=== PATIENT | male | born 1935 | race Caucasian/White ===

== ENCOUNTER 2023-02-09 14:48 | Inpatient (IN) | payer BC ==
[~2023-02-09] VITALS: Ht 175.3 cm; Wt 63.5 kg
[2023-02-09 15:47] LABS: HEMOGLOBIN 13.8 g/dL (12.5-16.3)
[2023-02-09 15:55] LABS: BASOPHILS # (AUTO) 0.1 K/UL (0.0-0.2); BASOPHILS % (AUTO) 0.9 % (0.0-2.0); DIFFERENTIAL COMMENT 0; EOSINOPHILS # (AUTO) 0.1 K/uL (0.0-0.7); EOSINOPHILS % (AUTO) 1.1 % (0.0-7.0); HEMATOCRIT 41.2 % (36.7-47.1); LYMPHOCYTES # (AUTO) 1.6 K/uL (0.8-4.8); MEAN CORPUSCULAR HEMOGLOBIN 30.6 uug (23.8-33.4); MEAN CORPUSCULAR HGB CONC 34 g/dL (32.5-36.3); MEAN CORPUSCULAR VOLUME 91.5 fL (73.0-96.2); MONOCYTES # (AUTO) 0.9 K/uL (0.1-1.30); MONOCYTES % (AUTO) 13.7 % (0.0-11.0); NEUTROPHILS % (AUTO) 60.3 % (38.5-71.5); PLATELET COUNT (AUTO) 190 K/uL (152-348); RED CELL DISTRIBUTION WIDTH 15.3 % (12.1-16.2); WHITE BLOOD COUNT (AUTO) 6.6 K/uL (3.6-10.2)
[2023-02-09 16:05] LABS: ETHANOL < 3 MG/DL (0-10)
[2023-02-09 16:15] LABS: AMMONIA < 10 umol/L (11-32)
[2023-02-09 16:20] LABS: LACTIC ACID 2.4 mmol/L (0.4-2.0)
[2023-02-09 16:30] LABS: CALCIUM 9.5 mg/dL (8.5-10.1); CARBON DIOXIDE 24 mmol/L (21-32); CHLORIDE 98 mmol/L (98-107); CREATININE 1.4 mg/dL (0.6-1.3); GLUCOSE 95 mg/dL (74-106); POTASSIUM 3.3 mmol/L (3.5-5.1); SODIUM SERUM 140 mmol/L (136-145); UREA NITROGEN, BLOOD 21 mg/dL (7-18)
[2023-02-09 16:45] LABS: *BLOOD, URINE 1+ (NEGATIVE); *CLARITY,URINE CLEAR (CLEAR); *COLOR,URINE YELLOW (YELLOW); *KETONES,URINE 2+ (NEGATIVE); *PROTEIN,URINE NEGATIVE (NEGATIVE); LEUKOCYTE ESTERASE ,URINE NEGATIVE (NEGATIVE); NITRITE, URINE NEGATIVE (NEGATIVE); UGLUCOSE NEGATIVE (NEGATIVE)
[2023-02-09 16:48] LABS: *BILIRUBIN,URIN 2+ (NEGATIVE)
[2023-02-09 17:04] LABS: ALANINE AMINOTRANSFERASE 31 U/L (16-63); ALBUMIN 3.7 g/dL (3.4-5.0); ALKALINE PHOSPHATASE 53 U/L (50-136); ASPARTATE AMINOTRANSFERASE 30 U/L (15-37); BILIRUBIN,DIRECT 0.3 mg/dL (0.0-0.2); BILIRUBIN,TOTAL 0.6 mg/dL (0.2-1.0); TOTAL PROTEIN, SERUM 7.5 g/dL (6.4-8.2)
[2023-02-09 17:29] LABS: *AMPHETAMINE, URINE NEGATIVE (NEGATIVE); *BARBITURATE, URINE NEGATIVE (NEGATIVE); *BENZODIAZEPINE, URINE NEGATIVE (NEGATIVE); *CANNABINOID, URINE NEGATIVE (NEGATIVE); *COCCAINE, URINE NEGATIVE (NEGATIVE); *OPIATE, URINE NEGATIVE (NEGATIVE); *PHENCYCLIDINE SCREEN,URINE NEGATIVE (NEGATIVE); FENTANYL, URINE NEGATIVE (NEGATIVE)
[2023-02-09 17:46] LABS: ACETAMINOPHEN < 10.0 ug/mL (10-30)
[2023-02-09 18:26] LABS: BACTERIA,URINE FEW /HPF (NONE SEEN); SQUAMOUS EPITHELIAL CELL,UR FEW /HPF (NONE SEEN)
[2023-02-09 18:47] LABS: THYROID STIMULATING HORMONE 1.884 mIU/mL (0.358-3.740)
[2023-02-09] MEDS ORDERED: MAGNESIUM HYDROXIDE 30 ML LIQUID UDC PO PRN (19:30)
[2023-02-09] MEDS ORDERED: ACETAMINOPHEN 325 MG TABLET PO PRN (19:30)
[2023-02-09] MEDS ORDERED: ONDANSETRON 4 MG/2 ML VIAL IV PRN (19:30)
[2023-02-09] MEDS: ENOXAPARIN SODIUM 40 MG/0.4 ML DISP.SYRIN SQ SCH (21:33)
[2023-02-09] MEDS: IV D5 1/2 NS 1000 ML 1,000 ML IV PRN (21:42)
[2023-02-09] MEDS ORDERED: CEFTRIAXONE 1 G VIAL ONE (22:23)
[2023-02-09] MEDS: CEFTRIAXONE 1 G in IV DEXTROSE 5% 50 ML IV SCH (22:51)
[2023-02-10 00:55] VITALS: BP 118/70; TEMP 98.3; O2SAT 96
[2023-02-10 05:08] VITALS: BP 110/47; TEMP 97.5; O2SAT 96
[2023-02-10 07:20] LABS: BASOPHILS # (AUTO) 0.1 K/UL (0.0-0.2); BASOPHILS % (AUTO) 1.3 % (0.0-2.0); EOSINOPHILS # (AUTO) 0.1 K/uL (0.0-0.7); EOSINOPHILS % (AUTO) 1.2 % (0.0-7.0); HEMATOCRIT 36.8 % (36.7-47.1); HEMOGLOBIN 12.2 g/dL (12.5-16.3); LYMPHOCYTES # (AUTO) 1.4 K/uL (0.8-4.8); LYMPHOCYTES % (AUTO) 21.1 % (20.5-51.5); MEAN CORPUSCULAR HEMOGLOBIN 29.9 uug (23.8-33.4); MEAN CORPUSCULAR HGB CONC 33 g/dL (32.5-36.3); MEAN CORPUSCULAR VOLUME 90.3 fL (73.0-96.2); MONOCYTES # (AUTO) 1.1 K/uL (0.1-1.30); MONOCYTES % (AUTO) 17.5 % (0.0-11.0); NEUTROPHILS # (AUTO) 3.8 K/uL (1.8-8.9); NEUTROPHILS % (AUTO) 58.9 % (38.5-71.5); PLATELET COUNT (AUTO) 164 K/uL (152-348); RED BLOOD CELL COUNT(AUTO) 4.08 MIL/uL (4.06-5.63); RED CELL DISTRIBUTION WIDTH 14.8 % (12.1-16.2); WHITE BLOOD COUNT (AUTO) 6.5 K/uL (3.6-10.2)
[2023-02-10 07:37] LABS: DIFFERENTIAL COMMENT 1
[2023-02-10 07:39] LABS: ALANINE AMINOTRANSFERASE 25 U/L (16-63); ALBUMIN 2.8 g/dL (3.4-5.0); ALKALINE PHOSPHATASE 36 U/L (50-136); ASPARTATE AMINOTRANSFERASE 24 U/L (15-37); BILIRUBIN,TOTAL 0.6 mg/dL (0.2-1.0); CARBON DIOXIDE 27 mmol/L (21-32); CHLORIDE 100 mmol/L (98-107); CREATININE 1.3 mg/dL (0.6-1.3); GLUCOSE 133 mg/dL (74-106); MAGNESIUM 1.7 mg/dL (1.8-2.4); PHOSPHOROUS 2.7 mg/dL (2.5-4.9); POTASSIUM 3.4 mmol/L (3.5-5.1); SODIUM SERUM 138 mmol/L (136-145); TOTAL PROTEIN, SERUM 5.8 g/dL (6.4-8.2); UREA NITROGEN, BLOOD 18 mg/dL (7-18)
[2023-02-10 07:53] LABS: CALCIUM 8.1 mg/dL (8.5-10.1)
[2023-02-10 07:56] LABS: THYROID STIMULATING HORMONE 1.716 mIU/mL (0.358-3.740)
[2023-02-10 08:00] VITALS: BP 134/71; TEMP 97.5; O2SAT 97
[2023-02-10] MEDS ORDERED: POTASSIUM CHLORIDE 20 MEQ TAB.PRT.SR PO ONE ×2 (08:45→17:00)
[2023-02-10] MEDS ORDERED: MAGNESIUM OXIDE 400 MG TABLET PO ONE (09:15)
[2023-02-10 11:30] VITALS: BP 125/74; TEMP 98; O2SAT 94
[2023-02-10 15:14] LABS: EOSINOPHILS % (MANUAL) 2 % (0-8); LYMPHOCYTES % (MANUAL) 24 % (20-40); MONOCYTES % (MANUAL) 15 % (2-10); NEUTROPHILS % (MANUAL) 59 % (42-75); PLATELET ESTIMATE ADEQUATE
[2023-02-10 16:38] VITALS: BP 133/84; TEMP 98.3; O2SAT 96
[2023-02-10] MEDS: IV D5 1/2 NS 1000 ML 1,000 ML IV PRN (17:03)
[2023-02-10] MEDS: ENSURE ENLIVE (VAN) 240 ML LIQUID PO SCH (17:03)
[2023-02-10] MEDS: CLOTRIMAZOLE 1% CREAM 30 GM TUBE TOP SCH (17:07)
[2023-02-10 20:00] VITALS: BP 147/90; TEMP 98.6; O2SAT 93
[2023-02-10] MEDS: ENOXAPARIN SODIUM 40 MG/0.4 ML DISP.SYRIN SQ SCH (21:03)
[2023-02-10] MEDS: CEFTRIAXONE 1 G in IV DEXTROSE 5% 50 ML IV SCH (21:19)
[2023-02-11 04:30] VITALS: BP 143/74; TEMP 98.6; O2SAT 95
[2023-02-11 08:31] LABS: BASOPHILS % (AUTO) 0.6 % (0.0-2.0); EOSINOPHILS # (AUTO) 0.1 K/uL (0.0-0.7); EOSINOPHILS % (AUTO) 1.8 % (0.0-7.0); LYMPHOCYTES # (AUTO) 1.6 K/uL (0.8-4.8); LYMPHOCYTES % (AUTO) 25.2 % (20.5-51.5); MEAN CORPUSCULAR HEMOGLOBIN 30.4 uug (23.8-33.4); MEAN CORPUSCULAR HGB CONC 33 g/dL (32.5-36.3); MEAN CORPUSCULAR VOLUME 91.1 fL (73.0-96.2); MONOCYTES # (AUTO) 1.1 K/uL (0.1-1.30); MONOCYTES % (AUTO) 17.3 % (0.0-11.0); NEUTROPHILS # (AUTO) 3.5 K/uL (1.8-8.9); NEUTROPHILS % (AUTO) 55.1 % (38.5-71.5); PLATELET COUNT (AUTO) 177 K/uL (152-348); RED BLOOD CELL COUNT(AUTO) 3.95 MIL/uL (4.06-5.63); RED CELL DISTRIBUTION WIDTH 14.9 % (12.1-16.2); WHITE BLOOD COUNT (AUTO) 6.4 K/uL (3.6-10.2)
[2023-02-11 08:39] LABS: DIFFERENTIAL COMMENT 1
[2023-02-11 08:41] LABS: LYMPHOCYTES % (MANUAL) 0 % (20-40); NEUTROPHILS % (MANUAL) 0 % (42-75)
[2023-02-11 08:45] LABS: CALCIUM 8.8 mg/dL (8.5-10.1); CARBON DIOXIDE 25 mmol/L (21-32); CHLORIDE 101 mmol/L (98-107); CREATININE 1.1 mg/dL (0.6-1.3); GLUCOSE 118 mg/dL (74-106); MAGNESIUM 1.8 mg/dL (1.8-2.4); SODIUM SERUM 137 mmol/L (136-145); UREA NITROGEN, BLOOD 14 mg/dL (7-18)
[2023-02-11 08:48] LABS: POTASSIUM 3.7 mmol/L (3.5-5.1)
[2023-02-11] MEDS: REMEDY ESSENTIAL ZINC PASTE 113 GM TP PRN (09:01)
[2023-02-11] MEDS: CLOTRIMAZOLE 1% CREAM 30 GM TUBE TOP SCH ×2 (09:02→17:34)
[2023-02-11] MEDS: ENSURE ENLIVE (VAN) 240 ML LIQUID PO SCH ×2 (09:03→17:33)
[2023-02-11] MEDS: IV D5 1/2 NS 1000 ML 1,000 ML IV PRN (10:49)
[2023-02-11 11:14] VITALS: BP 111/72; TEMP 98.3; O2SAT 95
[2023-02-11 15:07] VITALS: BP 102/61; TEMP 98.4; O2SAT 94
[2023-02-11] MEDS: ENOXAPARIN SODIUM 40 MG/0.4 ML DISP.SYRIN SQ SCH (20:10)
[2023-02-11] MEDS: CEFTRIAXONE 1 G in IV DEXTROSE 5% 50 ML IV SCH (20:22)
[2023-02-11 20:52] VITALS: BP 132/76; TEMP 98.8; O2SAT 98
[2023-02-11 23:24] VITALS: BP 124/69; TEMP 98.6; O2SAT 96
[2023-02-12] MEDS: IV D5 1/2 NS 1000 ML 1,000 ML IV PRN (03:53)
[2023-02-12 05:18] VITALS: BP 150/84; TEMP 98.4; O2SAT 98
[2023-02-12] MEDS: ENSURE ENLIVE (VAN) 240 ML LIQUID PO SCH ×2 (09:11→17:33)
[2023-02-12] MEDS: CLOTRIMAZOLE 1% CREAM 30 GM TUBE TOP SCH ×2 (09:12→17:34)
[2023-02-12 10:22] LABS: LACTIC ACID 3.3 mmol/L (0.4-2.0)
[2023-02-12] MEDS ORDERED: MINERAL OIL/PETROLATUM,WHITE 57 GM TUBE TOP PRN (11:15)
[2023-02-12 11:32] VITALS: BP 124/82; TEMP 97.9; O2SAT 95
[2023-02-12 12:59] LABS: BILIRUBIN,DIRECT 0.1 mg/dL (0.0-0.2); BILIRUBIN,TOTAL 0.3 mg/dL (0.2-1.0)
[2023-02-12 16:00] VITALS: BP 136/77; TEMP 97.6; O2SAT 97
[2023-02-12 19:50] VITALS: BP 109/61; TEMP 98; O2SAT 95
[2023-02-12] MEDS: MINERAL OIL/PETROLATUM,WHITE 57 GM TUBE TOP SCH (21:00)
[2023-02-12] MEDS: METRONIDAZOLE 500 MG/NS 100ML 500 MG in PREMIXED 1 EACH IV SCH (22:38)
[2023-02-12] MEDS: CEFTRIAXONE 1 G in IV DEXTROSE 5% 50 ML IV SCH (22:38)
[2023-02-12] MEDS: ENOXAPARIN SODIUM 40 MG/0.4 ML DISP.SYRIN SQ SCH (22:39)
[2023-02-13 00:47] VITALS: BP 128/80; TEMP 98.4; O2SAT 96
[2023-02-13] MEDS: IV D5 1/2 NS 1000 ML 1,000 ML IV PRN ×2 (02:10→17:41)
[2023-02-13] MEDS: METRONIDAZOLE 500 MG/NS 100ML 500 MG in PREMIXED 1 EACH IV SCH ×3 (05:29→21:40)
[2023-02-13 06:42] VITALS: BP 150/90; TEMP 98.6; O2SAT 95
[2023-02-13] MEDS: ENSURE ENLIVE (VAN) 240 ML LIQUID PO SCH ×2 (09:19→16:33)
[2023-02-13] MEDS: CLOTRIMAZOLE 1% CREAM 30 GM TUBE TOP SCH ×2 (09:21→16:33)
[2023-02-13] MEDS: MINERAL OIL/PETROLATUM,WHITE 57 GM TUBE TOP SCH ×2 (09:22→20:05)
[2023-02-13] MEDS: REMEDY ESSENTIAL ZINC PASTE 113 GM TP PRN (09:23)
[2023-02-13 09:48] LABS: HIV-1 p24 ANTIGEN NON REACTIVE (NONREACTIVE); HIV-1/2 ANTIBODY NON REACTIVE (NONREACTIVE)
[2023-02-13 11:19] VITALS: BP 139/73; TEMP 98.8; O2SAT 93
[2023-02-13 16:00] VITALS: BP 147/81; TEMP 98.6
[2023-02-13 20:00] VITALS: BP 145/73; TEMP 98.5; O2SAT 90
[2023-02-13] MEDS: CEFTRIAXONE 1 G in IV DEXTROSE 5% 50 ML IV SCH (20:02)
[2023-02-13] MEDS: ENOXAPARIN SODIUM 40 MG/0.4 ML DISP.SYRIN SQ SCH (20:07)
[2023-02-13 22:33] VITALS: O2SAT 99
[2023-02-14] VITALS: BP 161/93; TEMP 98.5; O2SAT 93
[2023-02-14 04:00] VITALS: BP 142/80; TEMP 98.1; O2SAT 92
[2023-02-14] MEDS: METRONIDAZOLE 500 MG/NS 100ML 500 MG in PREMIXED 1 EACH IV SCH ×3 (06:10→22:02)
[2023-02-14] MEDS: ENSURE ENLIVE (VAN) 240 ML LIQUID PO SCH ×2 (08:00→17:00)
[2023-02-14] MEDS: REMEDY ESSENTIAL ZINC PASTE 113 GM TP PRN (08:40)
[2023-02-14] MEDS: CLOTRIMAZOLE 1% CREAM 30 GM TUBE TOP SCH ×3 (08:40→21:26)
[2023-02-14] MEDS: MINERAL OIL/PETROLATUM,WHITE 57 GM TUBE TOP SCH ×2 (08:40→21:28)
[2023-02-14 11:46] VITALS: BP 136/81; TEMP 98; O2SAT 98
[2023-02-14] MEDS: IV D5 1/2 NS 1000 ML 1,000 ML IV PRN (12:14)
[2023-02-14] MEDS: MAGNESIUM HYDROXIDE 30 ML LIQUID UDC PO SCH ×2 (13:21→21:25)
[2023-02-14 16:23] VITALS: BP 128/77; TEMP 98; O2SAT 97
[2023-02-14 20:00] VITALS: BP 103/63; TEMP 99.1; O2SAT 93
[2023-02-14] MEDS ORDERED: CEFTRIAXONE 2 G in IV DEXTROSE 5% 50 ML IV SCH (21:00)
[2023-02-14] MEDS: CEFTRIAXONE 2 G in IV DEXTROSE 5% 100 ML IV SCH (21:25)
[2023-02-14] MEDS: ENOXAPARIN SODIUM 40 MG/0.4 ML DISP.SYRIN SQ SCH (21:27)
[2023-02-15] VITALS: BP 95/55; TEMP 99.7; O2SAT 93
[2023-02-15 04:00] VITALS: BP 122/69; TEMP 98.6; O2SAT 93
[2023-02-15] MEDS: METRONIDAZOLE 500 MG/NS 100ML 500 MG in PREMIXED 1 EACH IV SCH ×3 (06:07→22:31)
[2023-02-15 07:26] LABS: BASOPHILS # (AUTO) 0.1 K/UL (0.0-0.2); BASOPHILS % (AUTO) 0.9 % (0.0-2.0); EOSINOPHILS # (AUTO) 0.4 K/uL (0.0-0.7); EOSINOPHILS % (AUTO) 6.5 % (0.0-7.0); HEMATOCRIT 33.1 % (36.7-47.1); HEMOGLOBIN 11.1 g/dL (12.5-16.3); LYMPHOCYTES # (AUTO) 1.7 K/uL (0.8-4.8); MEAN CORPUSCULAR HEMOGLOBIN 30.4 uug (23.8-33.4); MEAN CORPUSCULAR HGB CONC 34 g/dL (32.5-36.3); MEAN CORPUSCULAR VOLUME 90.7 fL (73.0-96.2); MONOCYTES % (AUTO) 16.2 % (0.0-11.0); NEUTROPHILS # (AUTO) 3.1 K/uL (1.8-8.9); NEUTROPHILS % (AUTO) 49.4 % (38.5-71.5); PLATELET COUNT (AUTO) 199 K/uL (152-348); RED BLOOD CELL COUNT(AUTO) 3.66 MIL/uL (4.06-5.63); RED CELL DISTRIBUTION WIDTH 15.1 % (12.1-16.2); WHITE BLOOD COUNT (AUTO) 6.2 K/uL (3.6-10.2)
[2023-02-15 07:31] LABS: DIFFERENTIAL COMMENT 1
[2023-02-15 08:30] LABS: ALANINE AMINOTRANSFERASE 43 U/L (16-63); ALBUMIN 2.6 g/dL (3.4-5.0); ALKALINE PHOSPHATASE 39 U/L (50-136); ASPARTATE AMINOTRANSFERASE 50 U/L (15-37); BILIRUBIN,TOTAL 0.3 mg/dL (0.2-1.0); CALCIUM 8.7 mg/dL (8.5-10.1); CARBON DIOXIDE 25 mmol/L (21-32); CHLORIDE 104 mmol/L (98-107); CHOLESTEROL 120 mg/dL (<200); CREATININE 1.1 mg/dL (0.6-1.3); GLUCOSE 106 mg/dL (74-106); HDL CHOLESTEROL 42 mg/dL (40-60); MAGNESIUM 2.2 mg/dL (1.8-2.4); PHOSPHOROUS 2.6 mg/dL (2.5-4.9); POTASSIUM 3.8 mmol/L (3.5-5.1); SODIUM SERUM 139 mmol/L (136-145); TOTAL PROTEIN, SERUM 5.9 g/dL (6.4-8.2); TRIGLYCERIDES 44 MG/DL (30-150); UREA NITROGEN, BLOOD 13 mg/dL (7-18)
[2023-02-15] MEDS: CLOTRIMAZOLE 1% CREAM 30 GM TUBE TOP SCH ×2 (08:32→16:16)
[2023-02-15] MEDS: MINERAL OIL/PETROLATUM,WHITE 57 GM TUBE TOP SCH ×2 (08:38→20:30)
[2023-02-15] MEDS: ENSURE ENLIVE (VAN) 240 ML LIQUID PO SCH ×2 (08:40→16:16)
[2023-02-15 11:50] VITALS: BP 149/81; TEMP 98; O2SAT 94
[2023-02-15] MEDS: IV D5 1/2 NS 1000 ML 1,000 ML IV PRN (13:35)
[2023-02-15 15:50] VITALS: BP 138/70; TEMP 98; O2SAT 95
[2023-02-15 20:00] VITALS: BP 146/73; TEMP 98.7; O2SAT 93
[2023-02-15] MEDS ORDERED: CLOBETASOL PROPIONATE 0.05% CREAM 15 GM TUBE TOP SCH (21:00)
[2023-02-15] MEDS: CEFTRIAXONE 2 G in IV DEXTROSE 5% 100 ML IV SCH (21:17)
[2023-02-16 04:34] VITALS: BP 118/68; TEMP 97.9; O2SAT 94
[2023-02-16] MEDS: METRONIDAZOLE 500 MG/NS 100ML 500 MG in PREMIXED 1 EACH IV SCH ×2 (05:05→14:20)
[2023-02-16] MEDS: IV D5 1/2 NS 1000 ML 1,000 ML IV PRN (05:21)
[2023-02-16 08:00] VITALS: BP 161/97; TEMP 97.1; O2SAT 96
[2023-02-16] MEDS ORDERED: CLOBETASOL PROPIONATE 0.05% CREAM 15 GM TUBE TOP SCH (09:00)
[2023-02-16] MEDS: MINERAL OIL/PETROLATUM,WHITE 57 GM TUBE TOP SCH (09:06)
[2023-02-16] MEDS: CLOTRIMAZOLE 1% CREAM 30 GM TUBE TOP SCH ×2 (09:07→17:57)
[2023-02-16] MEDS: ENSURE ENLIVE (VAN) 240 ML LIQUID PO SCH ×2 (09:09→17:56)
[2023-02-16 11:42] VITALS: BP 175/83; TEMP 96.2; O2SAT 97
[2023-02-16 11:46] VITALS: BP 114/54; TEMP 97.4; O2SAT 96
[2023-02-16 16:07] VITALS: BP 139/75; TEMP 98.4; O2SAT 93
[2023-02-16] MEDS ORDERED: Lactose-Free Food PO (18:08)
[2023-02-16] MEDS ORDERED: MAGN400O6 PO (18:08)
[2023-02-16] MEDS ORDERED: FURO-152 PO (18:08)
[2023-02-16] MEDS ORDERED: MINE454C11 TOP (18:08)
[2023-02-16] MEDS ORDERED: ACET325T53 PO (18:08)
[2023-02-16] MEDS ORDERED: CLOB15CR10 TOP (18:08)
== END 2023-02-16 23:19 | DRG 871 ==
LOC: ER 14:48 → TELE3 19:42 → MEDSURG3 02-10 10:25 → TELE3 02-11 12:39 → MEDSURG3 02-15 18:24 → MED 02-15 21:20
PROVIDERS: ADMIT Internal Medicine; ATTEND Internal Medicine
PROC: 05HC33Z Insertion of Infusion Device into Left Basilic Vein, Percutaneous Approach (ICD-10-PCS; principal; 2023-02-11)
DX: A41.9 Sepsis, unspecified organism (principal); G92.8 Other toxic encephalopathy; N17.0 Acute kidney failure with tubular necrosis; N39.0 Urinary tract infection, site not specified; D68.59 Other primary thrombophilia; E44.0 Moderate protein-calorie malnutrition; K57.32 Diverticulitis of large intestine without perforation or abscess without bleeding; E87.20 Acidosis, unspecified; Z68.1 Body mass index [BMI] 19.9 or less, adult; F33.9 Major depressive disorder, recurrent, unspecified; R62.7 Adult failure to thrive; Z74.09 Other reduced mobility; D64.9 Anemia, unspecified; L40.9 Psoriasis, unspecified; M50.322 Other cervical disc degeneration at C5-C6 level; E83.42 Hypomagnesemia; E86.9 Volume depletion, unspecified; E87.6 Hypokalemia; H91.90 Unspecified hearing loss, unspecified ear; K56.41 Fecal impaction; K31.84 Gastroparesis; R00.0 Tachycardia, unspecified; F99 Mental disorder, not otherwise specified; F41.9 Anxiety disorder, unspecified; M89.8X9 Other specified disorders of bone, unspecified site; I50.9 Heart failure, unspecified
CPT/HCPCS: 36415; 70030-TC; 70450; 71045; 72125; 83605; 83735; 84100; 84443; 84484; 85025; 85730; 86803; 87040; 87806; 93005; A4606; A4663; C1758; G0378; G0480; J0696; J1650; J3490; J7060